=== PATIENT | female | born 1990 ===

== ENCOUNTER 2024-11-20 10:59 | Observation (INO) | payer OTHER, SELFPAY ==
[2024-11-20] VITALS (29 sets, daily range): BP systolic 90–120; BP diastolic 59–79; PULSE 54–110; RESP 11–23; TEMP 36.2–37.2; O2SAT 98–100; BMI 16.9
--- NOTE | 2024-11-20 11:30 | DI.CT_ITS ---
Exam(s) CT ABDOMEN PELVIS W EXAM: CT ABDOMEN PELVIS W CLINICAL HISTORY: RLQ abd pain TECHNIQUE: Imaging Protocol: Axial computed tomography images with coronal and sagittal reformatted images were created and reviewed. CONTRAST MATERIAL: Intravenous: Omnipaque 350 Contrast volume:75 mL Oral: No COMPARISON: No exams were available for comparison FINDINGS: ABDOMEN: Lung Bases: No acute abnormality. Liver: Normal density. There is a 1.2 cm hyperdense focus in the subcapsular region of the right lobe of the liver. This may represent a hemangioma. No suspicious hepatic masses are seen. Nonemergent MRI of the liver is recommended. Portal, Superior Mesenteric, and Splenic Veins: Unremarkable. Gallbladder and Biliary Tract: No radiodense calculus or dilation. Pancreas: Normal density, no abnormal calcifications or inflammatory process. Spleen: Normal. Adrenals: No masses seen. Kidneys: Normal size, contour and axis. There is a 2 mm nonobstructing stone in the midpole of the ri ght kidney. No masses seen. Abdominal Aorta: Abdominal portion non-dilated. Bowel: The appendix measures 1.1 cm in diameter. There is an appendicoliths seen in the tip of the a ppendix (series 10, image 120). The tip of the appendix is directed medially and lies anterior to th e sacrum. There is thickening of the wall of the cecum. The remainder of the bowel is unremarkable. There is no evidence of obstruction. Peritoneal Cavity: There is a small amount of free fluid in the pelvis. No focal fluid collection is seen to suggest an abscess. No free air. Lymph Nodes: Within normal limits. Bones: Within normal limits for the patient's age. Soft Tissues: Unremarkable. PELVIS: Bladder: Symmetric distention, no gross wall thickening. Reproductive Organs: Unremarkable as visualized. Lymph Nodes: Within normal limits. Bones: Within normal limits for the patient's age. IMPRESSION: 1. Prominent thickening of the wall of the base of the cecum. While an inflammatory or infectious pr ocess should be considered, the cecal mass cannot be excluded. Surgical consult is recommended. 2. Distended appendix with a thickened wall in appendicoliths consistent with an appendicitis. No ab scess or free air. 3. Small amount of free fluid in the pelvis. 4. Findings were discussed with the Mayr Vu at 1:10 p.m. on 11/20/2024. RADIATION DOSE DELIVERED: 220.43mGy.cm Total DLP DATA REPOSITORY: All CT scans at this facility are submitted to the National Radiology Data Registry (NRDR) Dose Index Registry (DIR) with the [employer] (A[employer]). RADIATION OPTIMIZATION: All CT scans at this facility use at least one of these dose optimization te chniques: automated exposure control; mA and/or kV adjustment per patient size (includes targeted exa ms where dose is matched to clinical indication); or iterative reconstruction.
--- NOTE | 2024-11-20 11:38 | ED.GENADUL_ITS ---
Discharge Plan Disposition Patient Disposition: Admit to [facility] Condition: Stable Discharge Details Clinical Impression: Acute appendicitis Primary Care Provider: Unknown,Unknown ED Provider: Mary Vu Home Meds and New Rx's Prescriptions: No Action sertraline [Zoloft] 100 mg tablet 100 mg PO DAILY aripiprazole [Abilify] 2 mg tablet 2 mg PO DAILY diazepam 5 mg tablet 5 mg PO TID PRN promethazine 12.5 mg tablet 12.5 mg PO TID PRN Rx Instructions: 3 doses during day; last dose no later than 4 hr before bedtime HPI General Mode of arrival: ambulatory . Date/Time Provider Initiated Documentation: 11/20/24 11:07 . Limitations to Documentation: no limitations . Information obtained by: patient, RN notes reviewed and old records reviewed . HPI Narrative: 34-year-old female presents to the ER with a chief complaint of right lower quadrant abdominal pain for the last week. She reports it burning in nature and that it radiates up into her left upper quadrant. No history of abdominal surgeries. She does report some hesitancy with urination. Reports that her menstrual period should start in the next 4 days. She does endorse nausea no vomiting no diarrhea. She has been taking promethazine at home. Does have a history of gastroparesis and ovarian cyst. She also endorses chills and low- grade fever. No other associated symptoms or concerns. Patient is alert and oriented. No abdominal distention no masses palpated. Related Data Home Medications ?Medication ?Instructions ?Recorded ?Confirmed aripiprazole 2 mg tablet (Abilify) 2 mg PO DAILY 11/20/24 11/20/24 diazepam 5 mg tablet 5 mg PO TID PRN 11/20/24 11/20/24 promethazine 12.5 mg tablet 12.5 mg PO TID PRN 11/20/24 11/20/24 sertraline 100 mg tablet (Zoloft) 100 mg PO DAILY 11/20/24 11/20/24 Allergies Allergy/AdvReac Type Severity Reaction Status Date / Time No Known Allergies Allergy Unverified 11/20/24 11:07 General Stated Complaint: Abd Prob CHUY: 3 Review of Systems All systems reviewed & are unremarkable except as noted in HPI and below Gastrointestinal Gastrointestinal: Reports abdominal pain and Reports nausea Exam Narrative Exam Narrative: Constitutional: Alert and oriented x3. Appears stated age. Thin body habitus. Head: Normocephalic, no trauma. Eyes: Pupils PERRL, Red reflex noted, EOM's intact. Eyelids symmetrical without lesions, discharge, or swelling. ENT: Bilateral TM's WNL, External ear normal to inspection, no mastoid TTP, swelling, or erythema, Nasal turbinates WNL, no nasal discharge. Normal dentition, Posterior pharynx WNL, no exudate. Chest: RRR, Normal S1, S2, distal pulses intact. Resp: Lungs clear to auscultation bilaterally, no wheezes, rales, or rhonchi. Abdomen: Soft, non-distended, hypoactive bowel sounds all 4 quads. Musculoskeletal: Normal gait, Moves all 4 extremities without difficulty. Skin: No suspicious rashes or lesions. Capillary refill less than 2 sec. Neurologic: Cranial nerves II-XII intact. Alert and oriented x 3. Motor: No deficits noted. Sensory: Intact bilaterally all 4 extremities. Hematologic/Lymphatic: No ecchymosis, no lymphadenopathy. Course Vital Signs Vital signs: Vital Signs Temperature 36.6 C 11/20/24 11:01 Pulse 99 H 11/20/24 11:01 Respiratory Rate 20 11/20/24 11:01 Blood Pressure 109/75 11/20/24 11:01 Pulse Oximetry 98 11/20/24 11:01 Temperature 36.6 C 11/20/24 11:04 Pulse 99 H 11/20/24 11:04 Respiratory Rate 20 11/20/24 11:04 Blood Pressure 109/75 11/20/24 11:04 Blood Pressure Position Sitting 11/20/24 11:04 Pulse Oximetry 98 11/20/24 11:04 Oxygen Delivery Method Room Air 11/20/24 11:04 Oxygen Flow Rate 0 11/20/24 11:04 Pain Level 7 11/20/24 11:35 Medical Decision Making 34-year-old female presents to the ER with a chief complaint of right lower quadrant abdominal pain for the last week. She reports it burning in nature and that it radiates up into her left upper quadrant. No history of abdominal surgeries. She does report some hesitancy with urination. Reports that her menstrual period should start in the next 4 days. She does endorse nausea no vomiting no diarrhea. She has been taking promethazine at home. Does have a history of gastroparesis and ovarian cyst. She also endorses chills and low- grade fever. No other associated symptoms or concerns. Patient is alert and oriented. No abdominal distention no masses palpated. Abdominal pain workup ordered including CBC CMP lipase urinalysis and urine test. CT abdomen pelvis with contrast. Differential diagnose includes limited to UTI, ovarian cyst, appendicitis, gastroenteritis, GERD Labs showed leukocytosis white blood cell count 13.92, neutrophils 11.28 lipase within normal limits urinalysis shows trace blood 3-5 RBCs no evidence of UTI. 1312: Spoke with radiologist Dr. Díaz regarding CT results he reports that her appendix is enlarged there is also some adjacent inflammation of the cecum. Surgery paged. Discussed CT results with patient who verbalized understanding. She last ate last night. She is requesting some Valium, will give her 0.5 of lorazepam IV. Instructed on NPO status. 1327: Discussed case with Dr. Martinez who is chief radiation therapist for surgery, he verbalized understanding and will contact OR crew. Patient transported to the OR by ED staff remained hemodynamically stable throughout the remainder of her stay. This text was generated using [employer] system, please disregard any oddities of phrase or misspellings. Imaging Data Radiologic Study: Imaging: CT Scan Radiologist's impression: IMPRESSION: 1. Prominent thickening of the wall of the base of the cecum. While an inflammatory or infectious process should be considered, the cecal mass cannot be excluded. Surgical consult is recommended. 2. Distended appendix with a thickened wall in appendicoliths consistent with an appendicitis. No abscess or free air. 3. Small amount of free fluid in the pelvis. 4. Findings were discussed with the Mary Vu at 1:10 p.m. on 11/20/2024. Lab Data Lab results reviewed: Yes I reviewed the patient's lab results. Labs: Laboratory Tests Range/Units 11/20/24 11/20/24 11:40 11:45 WBC (4.4-10.8) 10^3/uL 13.92 H RBC (3.93-5.22) 10^6/uL 4.93 Hgb (11.2-15.7) g/dL 14.7 Hct (36.0-46.0) % 44.4 MCV (80-95) fL 90 MCH (27.0-33.0) pg 29.8 MCHC (32.0-36.0) % 33.1 RDW (11.7-14.6) % 12.7 Plt Count (130-400) 10^3/uL 268 MPV (8.0-11.0) fL 9.6 Immature Gran % % 0.4 Neutrophils % % 81.0 Lymphocytes % % 11.9 Monocytes % % 6.1 Eosinophils % % 0.2 Basophils % % 0.4 Nucleated RBC % (0.0-0.3) % 0.0 Absolute Neutrophils (1.2-6.7) 10^3/uL 11.28 H Absolute Lymphocytes (1.2-3.4) 10^3/uL 1.66 Absolute Monocytes (0.1-0.8) 10^3/uL 0.85 H Absolute Eosinophils (0.0-0.7) 10^3/uL 0.03 Absolute Basophils (0.0-0.2) 10^3/uL 0.06 Sodium (136-145) mmol/L 141 Potassium (3.5-5.1) mmol/L 4.0 Chloride (98-107) mmol/L 102 Carbon Dioxide (21.0-32.0) mmol/L 29.2 Anion Gap (3-11) mmol/L 9.8 BUN (7-18) mg/dL 6 L Creatinine (0.55-1.02) mg/dL 0.7 Est GFR (CKD-EPI 2020) (mL/min/1.73m2) 116.31 Glucose (74-106) mg/dL 94 Calcium (8.5-10.1) mg/dL 9.4 Magnesium (1.8-2.4) mg/dL 1.9 Total Bilirubin (0.2-1.0) mg/dL 0.5 AST (15-37) U/L 12 L ALT (14-59) U/L 16 Alkaline Phosphatase (46-116) U/L 88 Total Protein (6.4-8.2) g/dL 7.8 Albumin (3.4-5.0) g/dL 4.2 Lipase (<78) U/L 22 Urine Color (Yellow) Yellow Urine Clarity (Clear) Clear Urine pH (5-8) 8.0 Ur Specific Hixson (1.005-1.025) 1.015 Urine Protein (Neg-Trace) mg/dL Negative Urine Ketones (Negative) mg/dL Negative Urine Blood (Negative) Trace-intact H Urine Nitrite (Negative) Negative Urine Bilirubin (Negative) Negative Urine Urobilinogen (Up to 0.2) mg/dL 0.2 Ur Leukocyte Esterase (Negative) Negative Urine RBC (0-2) HPF 3-5 H Urine WBC (0-5) HPF 0-2 Ur Epithelial Cells (Negative) HPF Moderate Urine Crystals (Negative) HPF Negative Urine Bacteria (Negative) HPF Few Urine Casts (Negative) LPF Negative Urine Mucus (Negative) Moderate Urine Other (Negative) Negative Ur Culture Indicated? No Urine Glucose (Negative) mg/dL Negative Quality:SDOH Health Related Social Needs: No Data to Display PFSH All Active Problems (Updated 11/20/24 @ 13:32 by Mary Vu NP) Acute appendicitis (Acute) Social History Smoking/Tobacco Use Status: Never Smoking risk assessment performed?: Yes Alcohol Intake: never Drug use: Socially Substance use type: marijuana
[2024-11-20 11:52] LABS: Bilirubin Negative (Negative); Blood Trace-intact (Negative); Clarity Clear (Clear); Glucose Negative (Negative); Ketones Negative (Negative); Leukocyte Esterase Negative (Negative); Nitrite Negative (Negative); Specific Gravity 1.015 (1.005-1.025); Urobilinogen 0.2 mg/dL (Up to 0.2)
[2024-11-20 11:54] LABS: Abs Immature Grans 0.05 10^3/uL (0.0-0.06); Absolute Eosinophil Count 0.03 10^3/uL (0.0-0.7); Absolute Lymphocyte Count 1.66 10^3/uL (1.2-3.4); Absolute Monocyte Count 0.85 10^3/uL (0.1-0.8); Absolute Neutrophil Count 11.28 10^3/uL (1.2-6.7); Basophils % 0.4 %; Eosinophils % 0.2 %; HCT 44.4 % (36.0-46.0); HGB 14.7 g/dL (11.2-15.7); Immature Grans % 0.4 %; Lymphocytes % 11.9 %; MCH 29.8 pg (27.0-33.0); MCHC 33.1 % (32.0-36.0); MCV 90 fL (80-95); MPV 9.6 fL (8.0-11.0); Monocytes % 6.1 %; Platelet Count 268 10^3/uL (130-400); RBC 4.93 10^6/uL (3.93-5.22); RDW 12.7 % (11.7-14.6); RDW-SD 42.4 fL; WBC 13.92 10^3/uL (4.4-10.8)
[2024-11-20 11:56] LABS: Absolute Basophil Count 0.06 10^3/uL (0.0-0.2)
[2024-11-20] MEDS: Omnipaque 350 MG/ML 100 ML BTL 75 ML IJ (12:04)
[2024-11-20] MEDS: Normal Saline - Diluent 50 ML VIAL IJ (12:05)
[2024-11-20 12:06] LABS: Bacteria Few HPF (Negative); C & S Indicated? No; Casts Negative LPF (Negative); Crystals Negative HPF (Negative); Epithelial Cells Moderate HPF (Negative); Mucus Moderate (Negative); Other Cells Negative (Negative); WBC 0-2 HPF (0-5)
[2024-11-20 12:15] LABS: ALT 16 U/L (14-59); AST 12 U/L (15-37); Albumin 4.2 g/dL (3.4-5.0); Alkaline Phosphatase 88 U/L (46-116); Anion Gap 9.8 mmol/L (3-11); BUN 6 mg/dL (7-18); Bilirubin, Total 0.5 mg/dL (0.2-1.0); CO2 29.2 mmol/L (21.0-32.0); CREATININE 0.7 mg/dL (0.55-1.02); Calcium 9.4 mg/dL (8.5-10.1); Chloride 102 mmol/L (98-107); Estimated GFR 116.31 (mL/min/1.73m2); Glucose 94 mg/dL (74-106); Lipase 22 U/L (<78); Magnesium 1.9 mg/dL (1.8-2.4); Sodium 141 mmol/L (136-145); Total Protein 7.8 g/dL (6.4-8.2)
[2024-11-20] MEDS: ACETAMINOPHEN 1,000 MG/100 ML BAG 400 MG IVPB (12:19)
[2024-11-20] MEDS: LORazepam 2 MG/ML VIAL 0.5 MG IVP (13:23)
[2024-11-20] MEDS: Normal Saline 1,000 ML 150 ML IV (13:38)
--- NOTE | 2024-11-20 14:00 | ANES.PREOP_ITS ---
General Info Date of Service Date Performed: 11/20/24 Height: 5 ft 6 in Weight: 47.627 kg Body Mass Index (BMI): 16.9 Meds Allergies and Home Medications Allergies Allergy/AdvReac Type Severity Reaction Status Date / Time No Known Allergies Allergy Unverified 11/20/24 11:07 Home Medication ?Medication ?Instructions ?Recorded aripiprazole 2 mg tablet (Abilify) 2 mg PO DAILY 11/20/24 diazepam 5 mg tablet 5 mg PO TID PRN 11/20/24 promethazine 12.5 mg tablet 12.5 mg PO TID PRN 11/20/24 sertraline 100 mg tablet (Zoloft) 100 mg PO DAILY 11/20/24 Current Visit Medications: Current Medications Generic Name Dose Route Start Last Admin Trade Name Freq PRN Reason Stop Dose Admin Sodium Chloride 1,000 mls @ 150 mls/hr 11/20/24 13:16 11/20/24 13:38 Saline 1000ml Bag IV 11/20/24 19:55 150 mls/hr INFUSION STA Administration IV Miscellaneous Supplies 1 each 11/20/24 11:45 Iv Access-Emergency Dept IV DIRECTED NADER Iohexol 75 ml 11/20/24 12:15 11/20/24 12:04 Omnipaque 350 Mg/Ml 100 Ml Btl IJ 12/20/24 23:59 75 ml DIRECTED NADER Administration Sodium Chloride 0 ml 11/20/24 11:37 Normal Saline Flush 10 Ml Syr IVP PRN PRN Sodium Chloride 0 ml 11/20/24 20:00 Normal Saline Flush 10 Ml Syr IVP BID NADER Sodium Chloride 0 ml 11/20/24 11:37 Normal Saline 10 Ml Vial IJ DIRECTED PRN Sodium Chloride 50 ml 11/20/24 12:15 11/20/24 12:05 Normal Saline - Diluent 50 Ml Vial IJ 50 ml .FOR DI USE NADER Administration PFSH Active Problems Active Problems: Problem Status Onset Code Acute appendicitis Acute K35.80 Tobacco Smoking/Tobacco Use Status: Never Alcohol Alcohol Intake: never Substance Use Substance use: Socially Substance use type: marijuana Vital Signs and Lab Results Vital Signs Most Recent Vital Signs in EMR: Most Recent Vital Signs Temp Pulse Resp BP Pulse Ox 36.6 C 99 H 20 109/75 98 11/20/24 11:04 11/20/24 11:04 11/20/24 11:04 11/20/24 11:04 11/20/24 11:04 Point of Care Results Point of Care Results: POC- Test(urine) Negative 11/20/24 11:52 Lab Results 11/20/24 11:45 11/20/24 11:45 Blood Type / Crossmatch: 2 No Data to Display Complete Blood Count: 2 White Blood Count 13.92 10^3/uL (4.4-10.8) H 11/20/24 11:45 Red Blood Count 4.93 10^6/uL (3.93-5.22) 11/20/24 11:45 Hemoglobin 14.7 g/dL (11.2-15.7) 11/20/24 11:45 Hematocrit 44.4 % (36.0-46.0) 11/20/24 11:45 Platelet Count 268 10^3/uL (130-400) 11/20/24 11:45 Complete Metabolic Panel: 2 Sodium 141 mmol/L (136-145) 11/20/24 11:45 Potassium 4.0 mmol/L (3.5-5.1) 11/20/24 11:45 Chloride 102 mmol/L (98-107) 11/20/24 11:45 Carbon Dioxide 29.2 mmol/L (21.0-32.0) 11/20/24 11:45 BUN 6 mg/dL (7-18) L 11/20/24 11:45 Creatinine 0.7 mg/dL (0.55-1.02) 11/20/24 11:45 Est GFR (CKD-EPI 2020) 116.31 (mL/min/1.73m2) 11/20/24 11:45 Magnesium 1.9 mg/dL (1.8-2.4) 11/20/24 11:45 Calcium 9.4 mg/dL (8.5-10.1) 11/20/24 11:45 Albumin 4.2 g/dL (3.4-5.0) 11/20/24 11:45 Glucose 94 mg/dL (74-106) 11/20/24 11:45 Liver Function Panel: 2 Alanine Aminotransferase (ALT/SGPT) 16 U/L (14-59) 11/20/24 11: 45 Aspartate Amino Transf (AST/SGOT) 12 U/L (15-37) L 11/20/24 11: 45 Coagulation Panel: 2 No Data to Display Cardiac Panel: 2 No Data to Display Arterial Blood Gas: 2 No Data to Display Venous Blood Gas: 2 No Data to Display Pancreas Panel: 2 Lipase 22 U/L (<78) 11/20/24 11:45 Thyroid Panel: 2 No Data to Display Infectious Disease: 2 No Data to Display Blood Cultures: 2 No Data to Display Toxicology Panel: 2 No Data to Display Panel: 2 No Data to Display Anesthesia Assessment and Plan Anesthesia History Personal History: No History of General Anesthesia Family History: No Family History of Anesthesia Complications Exercise Tolerance Exercise Tolerance: Metabolic Equivalents>4 Pertinent Negatives Pertinent Negatives: No Symptoms of GERD, No Major Cardiovascular Symptoms or Complaints and No Major Pulmonary Symptoms or Complaints Cardiac & Pulmonary Exam Cardiac Exam: Normal S1/S2 Heart Sounds Pulmonary Exam: Clear Bilateral Breath Sounds Implantable Cardiac Device Does patient have a Pacemaker or an ICD?: No Airway Exam Known Difficult Airway: No Mallampati Class: 3 Mouth Opening: Normal (> 3cm) Thyromental Distance: Greater than 3 cm Neck Range of Motion: Full ROM Neck Circumference: Normal Teeth Condition: Normal Dentition (Right upper tooth cracked, planning extraction in the future) ASA Classification ASA Score: ASA 2 Emergency Case?: Yes NPO Status NPO Status: NPO Clears >2 hours, Solids >8 hours Status Status: Negative HCG Anesthesia Plan Resuscitation Status: Full Code Anesthesia Technique: General Anesthesia Airway Planned: Endotracheal Tube Monitors Used: Standard Monitors and SedLine
--- NOTE | 2024-11-20 14:34 | W.SURGCON ---
Date of service: 11/20/24 Time of Service: 14:34 Assessment and Plan Assessment and plan (1) Acute appendicitis: Status: Acute Assessment and plan: Patient with acute appendicitis, plan for laparoscopic appendectomy, discussed with patient risks and expected outcomes of the procedure. She does live over an hour away from this facility, we will plan to keep her here overnight, if she is doing well tomorrow, plan for discharge home. (2) Gastroparesis: Status: Acute Assessment and plan: She does have some underlying gastroparesis, this can make postoperative course more lengthy, especially if she is unable to tolerated diet. Did discuss this with her today. (3) Anxiety: Status: Chronic Assessment and plan: She does have anxiety and depression, plan to restart these medications when she is able to take liquids enterally. (4) Depression: Status: Chronic Assessment and plan: As above History of Present Illness History of Present Illness Chief Complaint: Abdominal pain Narrative: Patient is a pleasant 34-year-old female, she has a history of gastroparesis, interstitial cystitis, depression, and anxiety, she presents to the hospital having about a week of lower abdominal pain associated with nausea. She has had no change in bowel function, some mild dysuria. Has not had pain of this character in the past. This prompted her to present to the ER today. Review of Systems Narrative: General, patient is of thin body habitus secondary to gastroparesis. CV negative. Respiratory negative. GI, as per HPI above, patient with history of gastroparesis, she has had this since her early 20s, is associated with nausea and vomiting for which she is on antiemetics. negative. Musculoskeletal negative. Endocrine negative. Neuro negative. Psych, patient with depression and anxiety as listed above. PFSH All Active Problems (Updated 11/20/24 @ 14:40 by Kev Martinez MD) Depression (Chronic) Anxiety (Chronic) Gastroparesis (Acute) Acute appendicitis (Acute) Social History Smoking/Tobacco Use Status: Never Smoking risk assessment performed?: Yes Alcohol Intake: never Drug use: Socially Substance use type: marijuana Exam Narrative Exam Narrative: Patient is a pleasant adult female, she is awake and alert, in minimal discomfort today. 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 She is of thin body habitus. Her cardiac exam is regular rate and rhythm without gross murmur. Her pulmonary exam is clear to auscultation bilaterally. Her abdomen was without prior surgical scar, it is scaphoid, soft, tender in the right lower quadrant, at McBurney's point, nondistended. Results Last Vital Signs Temp 36.6 C 11/20/24 11:04 Pulse 54 L 11/20/24 14:05 Resp 16 11/20/24 14:05 BP 107/71 11/20/24 14:05 Pulse Ox 98 11/20/24 14:05 Labs 11/20/24 11:45 11/20/24 11:45 Labs: Laboratory Results - last 24 hr 11/20/24 11/20/24 11:40 11:45 WBC 13.92 H RBC 4.93 Hgb 14.7 Hct 44.4 MCV 90 MCH 29.8 MCHC 33.1 RDW 12.7 Plt Count 268 MPV 9.6 Immature Gran % 0.4 Neutrophils % 81.0 Lymphocytes % 11.9 Monocytes % 6.1 Eosinophils % 0.2 Basophils % 0.4 Nucleated RBC % 0.0 Absolute Neutrophils 11.28 H Absolute Lymphocytes 1.66 Absolute Monocytes 0.85 H Absolute Eosinophils 0.03 Absolute Basophils 0.06 Sodium 141 Potassium 4.0 Chloride 102 Carbon Dioxide 29.2 Anion Gap 9.8 BUN 6 L Creatinine 0.7 Est GFR (CKD-EPI 2020) 116.31 Glucose 94 Calcium 9.4 Magnesium 1.9 Total Bilirubin 0.5 AST 12 L ALT 16 Alkaline Phosphatase 88 Total Protein 7.8 Albumin 4.2 Lipase 22 Urine Color Yellow Urine Clarity Clear Urine pH 8.0 Ur Specific Rebecca 1.015 Urine Protein Negative Urine Ketones Negative Urine Blood Trace-intact H Urine Nitrite Negative Urine Bilirubin Negative Urine Urobilinogen 0.2 Ur Leukocyte Esterase Negative Urine RBC 3-5 H Urine WBC 0-2 Ur Epithelial Cells Moderate Urine Crystals Negative Urine Bacteria Few Urine Casts Negative Urine Mucus Moderate Urine Other Negative Ur Culture Indicated? No Urine Glucose Negative Imaging Abdomen CT scan report/results: report reviewed, image reviewed and other (Reviewed patient's CT scan, this showing acute, nonperforated appendicitis per radiologist read. Some thickening of the cecum is noted on the read as well. I was able to view the images myself, there are some fluid collections that can be seen just adjacent to the bladder.)
[2024-11-20] MEDS: metroNIDAZOLE 500 MG/100 ML BAG 100 MG IVPB (15:33)
[2024-11-20] MEDS: Lactated Ringers 1,000 ML 30 ML IV (15:33)
--- NOTE | 2024-11-20 15:50 | APP_PTH ---
PATIENT: Karime Sánchez LOC: [id number]#:[id number] AGE/SX: 34/F ROOM: 226 RE11/20/[address]: Kev Martinez : 1990 BED: A DIS: 11/21/2024 SPEC #: [id number] RECD: 11/20/24 18:30 STATUS: SOUSalud REQ #: [id number] NATALIA: 11/20/24 15:[address]: Kev Martinez DEPT: Surgical Specimen RECD BY: Tessa Butler ENTERED: 11/20/24 18:31 SP TYPE: Appendix OTHR DR: Unknown,Unknown Tissues: 1 - APPENDIX NOT INCIDENTAL Procedures: GROSS AND MICRO LEVEL 3 Comments: [id number]
--- NOTE | 2024-11-20 16:27 | W.PM.OP ---
Operative Note Operative Note PRE-OP DIAGNOSIS: Acute appendicitis POST-OP DIAGNOSIS: same Endometriosis PROCEDURE: Laparoscopic appendectomy SURGEON: Kev Martinez PHOTOGRAPHIC RESTORER: Cindi Roe Refer to Anesthesia Record ESTIMATED BLOOD LOSS: 10 PATHOLOGY: other (Appendix) Patient was transported to: PACU Patient's condition: stable Implants: None Indications: Acute appendicitis Findings: Laparoscopic appendectomy performed uneventfully. Endometriosis was incidentally noted in the uterovesical space. Procedure Description: Patient was taken the operating room. She underwent general anesthesia the abdomen was prepped and draped. Timeout was completed. A Veress needle entry was performed in the left mid abdomen, lateral to the rectus sheath, and at the level of the umbilicus, a 5 mm trocar was inserted after the abdomen was insufflated to 15 cc of water. A 10 mm port was placed in the periumbilical position, a 5 mm port was placed in the suprapubic region. Patient's bed was air planed to the left side, she was put in a Trendelenburg position. The abdomen was surveyed, the viscera was nicely decompressed, patient had a redundant colon, with cecum that extended into the pelvis. She had a lengthy mesentery. The appendix was in its normal anatomic position at the base of the cecum. The appendix was inflamed, and dilated at its distal tip. It was not perforated nor gangrenous. The appendix was elevated, exposing the mesoappendix. The appendiceal artery was identified, circumferentially dissected, and then doubly clipped proximally with endoclips. A third clip was placed in the distal aspect, the mesoappendix was then cauterized at the level of the appendix, down to the appendiceal base. The cecum was thickened at the appendiceal base. There was an additional branching vessel of the appendiceal artery which was cauterized with electrocautery. The appendiceal base was occluded with 2 Vicryl Endoloops, a third Endoloop was placed about a centimeter distal and the appendix was transected. The pelvis was inspected, there was some bloody serous fluid in the rectovaginal pouch, this was suctioned. The uterus and adnexa appeared unremarkable. In the uterovesical space, there were small brown some peritoneal implants consistent with endometriosis. Site of dissection was inspected, it was hemostatic. The clips and ties were appropriately placed, occluding the correct structures. The appendix was placed in an endoscopic retrieval pouch, it was removed from the abdomen, the 10 mm port site near the umbilicus was closed with interrupted #1 Vicryl suture placed using suture passer. Gas was allowed to desufflate from the abdomen, all incision sites were closed with 3-0 Monocryl. Sterile dressings were applied. Sponge and needle counts were correct at the termination of the procedure. Patient is tolerated procedure well, she was transitioned to the recovery unit, she remains in stable condition. Date of Procedure: 11/20/24
[2024-11-20] MEDS: Bupivacaine 0.25% Pres-Free 30 ML VIAL (16:32)
[2024-11-20] MEDS: HYDROmorphone 2 MG/ML SYR IVP ×2 (16:39→16:53)
[2024-11-20] MEDS: Normal Saline 10 ML VIAL IJ (16:41)
--- NOTE | 2024-11-20 17:17 | W.ANESPOSTOP ---
Postoperative Evaluation Date, Time and Location Date Performed: 11/20/24 Time Performed: 17:17 Patient Location: PACU Vital Signs Most Recent Imported Vital Signs: Most Recent Vital Signs Temp Pulse Resp BP Pulse Ox 36.8 C 93 H 17 105/75 100 11/20/24 17:11 11/20/24 17:11 11/20/24 17:11 11/20/24 17:11 11/20/24 17:11 Pain Score Most Recent Pain Score: Most Recent Pain Score Pain Level 8 11/20/24 17:10 Assessment Mental Status: Awake (Alert & Oriented to Patient Baseline) Airway and Respiratory Function: Patent airway with normal (patient baseline) respiratory exam Cardiovascular Function: Hemodynamically Stable Hydration Status: Adequately Hydrated Nausea & Vomiting: Active Nausea or Vomiting Present Nausea and Vomiting Management: Nausea present without vomiting, patient wishes to be discharged (wishes to go upstairs to med/surg) Pain: Pain is Moderate or Severe Postoperative Pain Management: Ongoing pain, patient will be managed as an inpatient Peripheral Nerve Block: Patient did not receive a nerve block
--- NOTE | 2024-11-20 17:54 | W.PC.ACHO ---
Registration Status: Primary Language: Preferred Language: ED Information & Data Chief Complaint Abd Prob 11/20/24 11:41 Triage Note Hx of gastroparesis. Tender 11/20/24 11:01 pain in lower left abd quad + bilateral upper abd pain. Pain comes in waves and is helped by laying on a heating pad. PT has known ovarian cysts. Most Recent Vital Signs Temperature 36.8 C 11/20/24 17:11 Pulse 93 H 11/20/24 17:11 Pulse 94 H 11/20/24 17:11 Respiratory Rate 17 11/20/24 17:11 Blood Pressure 105/75 11/20/24 17:11 Blood Pressure Mean 83 11/20/24 17:11 Blood Pressure Position Sitting 11/20/24 11:04 Pulse Oximetry 100 11/20/24 17:11 Respiratory End-tidal CO2 29 11/20/24 17:10 Oxygen Delivery Method Room Air 11/20/24 17:10 Oxygen Flow Rate 10 11/20/24 16:25 Pain Level 8 11/20/24 17:10 Allergies No Known Allergies Allergy (Unverified 11/20/24 11:07) Active Medications Generic Name Dose Route Start Last Admin Trade Name Freq PRN Reason Stop Dose Admin Sodium Chloride 1,000 mls @ 150 mls/hr 11/20/24 13:16 11/20/24 15:35 Saline 1000ml Bag IV 11/20/24 19:55 Infused INFUSION STA Infusion Sodium Chloride 0 ml 11/20/24 15:00 11/20/24 16:41 Normal Saline 10 Ml Vial IJ 10 ml DIRECTED PRN Administration IV IV Catheter Type [Right Peripheral IV Antecubital] IV Catheter Gauge [Right 18 Antecubital] Diet Orders Category Date Time Status Post Op Diet [DIET] Nutrition 11/21/24 Breakfast Ordered npo [Nothing Per Oral] [DIET] Nutrition 11/20/24 Lunch Active Diagnostics 11/20/24 11/20/24 Range/Units 11:45 11:40 WBC 13.92 H (4.4-10.8) 10^3/uL RBC 4.93 (3.93-5.22) 10^6/uL Hgb 14.7 (11.2-15.7) g/dL Hct 44.4 (36.0-46.0) % MCV 90 (80-95) fL MCH 29.8 (27.0-33.0) pg MCHC 33.1 (32.0-36.0) % RDW 12.7 (11.7-14.6) % Plt Count 268 (130-400) 10^3/uL MPV 9.6 (8.0-11.0) fL Immature Gran % 0.4 % Neutrophils % 81.0 % Lymphocytes % 11.9 % Monocytes % 6.1 % Eosinophils % 0.2 % Basophils % 0.4 % Nucleated RBC % 0.0 (0.0-0.3) % Absolute Neutrophils 11.28 H (1.2-6.7) 10^3/uL Absolute Lymphocytes 1.66 (1.2-3.4) 10^3/uL Absolute Monocytes 0.85 H (0.1-0.8) 10^3/uL Absolute Eosinophils 0.03 (0.0-0.7) 10^3/uL Absolute Basophils 0.06 (0.0-0.2) 10^3/uL Sodium 141 (136-145) mmol/L Potassium 4.0 (3.5-5.1) mmol/L Chloride 102 (98-107) mmol/L Carbon Dioxide 29.2 (21.0-32.0) mmol/L Anion Gap 9.8 (3-11) mmol/L BUN 6 L (7-18) mg/dL Creatinine 0.7 (0.55-1.02) mg/dL Est GFR (CKD-EPI 2020) 116.31 (mL/min/1.73m2) Glucose 94 (74-106) mg/dL Calcium 9.4 (8.5-10.1) mg/dL Magnesium 1.9 (1.8-2.4) mg/dL Total Bilirubin 0.5 (0.2-1.0) mg/dL AST 12 L (15-37) U/L ALT 16 (14-59) U/L Alkaline Phosphatase 88 (46-116) U/L Total Protein 7.8 (6.4-8.2) g/dL Albumin 4.2 (3.4-5.0) g/dL Lipase 22 (<78) U/L Urine Color Yellow (Yellow) Urine Clarity Clear (Clear) Urine pH 8.0 (5-8) Ur Specific [place] 1.015 (1.005-1.025) Urine Protein Negative (Neg-Trace) mg/dL Urine Ketones Negative (Negative) mg/dL Urine Blood Trace-intact H (Negative) Urine Nitrite Negative (Negative) Urine Bilirubin Negative (Negative) Urine Urobilinogen 0.2 (Up to 0.2) mg/dL Ur Leukocyte Esterase Negative (Negative) Urine RBC 3-5 H (0-2) HPF Urine WBC 0-2 (0-5) HPF Ur Epithelial Cells Moderate (Negative) HPF Urine Crystals Negative (Negative) HPF Urine Bacteria Few (Negative) HPF Urine Casts Negative (Negative) LPF Urine Mucus Moderate (Negative) Urine Other Negative (Negative) Ur Culture Indicated? No Urine Glucose Negative (Negative) mg/dL [id number] Documentation POC Urine Test Start: 11/20/24 11:37 Freq: .Urine Test Status: Complete Protocol: Activity Type Activity Date Activity User E-sign Co-sign Detail Recorded Client Recorded Date Recorded By Document 11/20/24 11:52 N.COTC [id number] 11/20/24 11:52 N.COTC Intake and Output - 24 Hour Total 11/20/24 10:59 thru 11/20/24 17:10 Intake Total 1900 Output Total 110 Balance 1790 Weight 47.627 kg Intake: IV 1900 Output: Urine 100 Estimated Blood Loss 10 Other: Urine Color Pale Urine Appearance Clear Emesis Description None Urinary Catheter Urinary Catheter Date of 11/20/24 Insertion [Urethral (Matthews)] Time of insertion [Urethral ( 14:50 Matthews)] Falls Risk Assessment History of Falls No History 11/20/24 11:04 Contributing Factors No Factors 11/20/24 11:04 Ambulatory Aids Independent 11/20/24 11:04 Tubes/Lines None 11/20/24 11:04 Gait Evaluation No gait disturbance 11/20/24 11:04 Cognition No cognitive impairment 11/20/24 11:04 Fall Total Score 0 11/20/24 11:04 Level of Risk Standard/Low Risk 11/20/24 11:04 Problems (Last Reviewed 11/20/24 @ 14:37 by Kev Martinez MD) Depression (Chronic) Anxiety (Chronic) Gastroparesis (Acute) Acute appendicitis (Acute) v v v v v v v v v Sending and/or Receiving Nurses: Please use comment section below to note any information pertinent to the patient hand-off not included above. Information / Comments: Neuro: AxOx4 Cardiac: WDL Resp: WDL LDA: 18g LAC PRN's reviewed, Intra operative medications reviewed, allergies reviewed, possible endometriosis finding, General Anes used. See chart for Perioperative Hand off report. Report received from: JOSE Flores (OR)
[2024-11-20] MEDS: Ondansetron 4 MG/2 ML VIAL IVP (18:03)
[2024-11-20] MEDS: Normal Saline Flush 10 ML SYR IVP (18:04)
[2024-11-20] MEDS: Ibuprofen 600 MG TAB PO ×2 (18:04→23:50)
[2024-11-20] MEDS: Acetaminophen 500 MG TAB PO ×2 (18:04→21:37)
[2024-11-20] MEDS: Lactated Ringers 1,000 ML 75 ML IV (19:16)
[2024-11-20] MEDS: traMADol 50 MG TAB PO (19:45)
[2024-11-21] MEDS: Acetaminophen 500 MG TAB PO ×3 (01:44→11:50)
[2024-11-21] MEDS: traMADol 50 MG TAB PO ×2 (01:54→08:20)
[2024-11-21 03:49] VITALS: BP 104/61; PULSE 76; RESP 18; TEMP 36.6; O2SAT 99
[2024-11-21] MEDS: Ibuprofen 600 MG TAB PO (05:52)
[2024-11-21 07:30] VITALS: BP 96/68; PULSE 68; RESP 14; TEMP 36.9; O2SAT 98
[2024-11-21] MEDS: diazePAM 5 MG TAB PO (08:19)
[2024-11-21] MEDS: Sertraline 100 MG TAB PO (08:19)
[2024-11-21] MEDS: Ondansetron 4 MG/2 ML VIAL IVP (08:20)
[2024-11-21] MEDS: ARIPiprazole 2 MG TAB PO (08:21)
[2024-11-21] MEDS: Lactated Ringers 1,000 ML 75 ML IV (08:21)
[2024-11-21] MEDS: Normal Saline Flush 10 ML SYR IVP (08:21)
[2024-11-21 08:23] VITALS: RESP 16
--- NOTE | 2024-11-21 09:04 | PDOC.CMIN ---
Date of service: 11/21/24 Time of Service: 09:04 Care Management Initial Assmt Initial Assessment Reason for Hospitalization: appendicitis Functional Status/Living Situation Town of Residence: [place] Advance Directives Advance Directives: Do you have an Advance Directive: AD On File at [facility]: Date Asked AD Date Reviewed COLST On File at [facility] COLST Date Scanned Code Status Resuscitation Status Full Code Portal Pt does not currently have a portal and education provided: Yes Insurance Coverage/Financial Issues Insurance: P Care Team Visit Care Team Role Provider Type Unknown Unknown Primary Care Provider STAFF PHYSICIAN Mary Vu, JYOTSNA Emergency Provider NURSE PRACTITIONER Kev Martinez MD Admit Provider [facility] STAFF PHYSICIAN Attending Provider Discharge Potential Discharge Needs: Surgical F/U Appt Anticipated Barriers to Discharge: None Identified Patient/Family Education Needs: Review discharge instructions, discuss Ask Me Three Transportation: Private vehicle Plan: Anticipate Karime will be discharged home with no new services when medically cleared. She will follow up with her surgeon and plan of care and transport with family. CM will follow and continue to support discharge planning. Social Determinants of Health Screening Social Determinants of health last assessed in clinic: 11/20/24 Will the Patient Participate in the Screening?: Yes Do you worry about having a steady place to live?: no Problems where you live: no known problems In the past 12 months, have you had to go without electric, gas, oil or water in your home?: no Has lack of transportation kept you from medical appointments or from doing things needed for daily living?: no Has anyone in your life made you feel unsafe or unsupported?: no How hard is it for you to pay for the very basics like food, housing, medical care, and heating? Would you say it is:: Not hard at all Do you want help finding or keeping work or a job?: I do not need or want help If for any reason you need help with day-to-day activities such as bathing, preparing meals, shopping, managing finances, etc., do you get the help you need?: I don?t need any help How often do you feel lonely or isolated from those around you?: Never Do you speak a language other than [place] at home?: No Does the patient want assistance with any of the above?: No PFSH All Active Problems (Updated 11/20/24 @ 14:40 by Kev Martinez MD) Depression (Chronic) Anxiety (Chronic) Gastroparesis (Acute) Acute appendicitis (Acute) Social History Smoking/Tobacco Use Status: Never Smoking risk assessment performed?: Yes Alcohol Intake: never Drug use: Socially Substance use type: marijuana Housing: house
--- NOTE | 2024-11-21 10:33 | DSE_ITS ---
Date of service: 11/21/24 Time of Service: 10:33 DS: Diagnosis Discharge Diagnosis (1) Acute appendicitis: Status: Acute Asessment and Plan: She is feeling well today. No nausea nor vomiting, the pain that she had in the right lower quadrant has improved. She does have some periumbilical pain as expected postoperatively. Counseled her about avoidance of heavy lifting for the next 4 weeks. She should follow back here in clinic in 2 weeks for review of pathology. (2) Gastroparesis: Status: Acute Asessment and Plan: She does have a diagnosis of gastroparesis. Counseled her to avoid foods that cannot easily be mashed and disintegrated with a fork. Encouraged her to maintain 50 g of protein intake per day. (3) Anxiety: Status: Chronic Asessment and Plan: I have restarted medications for anxiety and depression. (4) Depression: Status: Chronic Discharge Plan Disposition Patient Disposition: Home Condition: Stable Discharge Details Reason For Visit: abd pain Admit Date/Time: 11/20/24 15:01 Admit Provider: Kev Martinez Attending Provider: Kev Martinez Primary Care Provider: Unknown,Unknown Hospital Course Hospital Course: Patient is a 34-year-old female, she presented to the hospital yesterday with acute appendicitis, underwent an uncomplicated laparoscopic appendectomy yesterday. She was planned for discharge home today. Home Meds and New Rx's Prescriptions: No Action sertraline [Zoloft] 100 mg tablet 100 mg PO DAILY aripiprazole [Abilify] 2 mg tablet 2 mg PO DAILY diazepam 5 mg tablet 5 mg PO TID PRN promethazine 12.5 mg tablet 12.5 mg PO TID PRN Rx Instructions: 3 doses during day; last dose no later than 4 hr before bedtime Discharge Instructions Instructions: Appendectomy, Laparoscopic Surgery (DC) Additional Instructions: Okay to shower, 24 hours after procedure. Recommend no heavy lifting, nothing greater than 15 pounds for 4 weeks from the date of procedure. Referrals: Sander Díaz MD [ [facility] STAFF PHYSICIAN] - Activity:: No heavy lifting, as abov Equipment/Supplies:: No Equipment Needed Diet:: As Tolerated Discharge Orders Discharge Orders: Discharge Order (Routine); Ordered 11/21/24 Ordered By: Kev Martinez DS: Summary Time Spent with Patient providing and/or coordinating discharge services: Less than 30 minutes Status at Discharge Functional status at discharge: independent ambulation Overall status at discharge: patient is back to baseline Mental Status: mental status grossly normal Speech and Movement: speech and movement normal Mood: congruent mood Affect: normal affect Quality:SDOH Health Related Social Needs: No Data to Display Exam Narrative Exam Narrative: Patient today with normal vital signs, she was examined with her nurse present. Her abdomen has some tenderness in the periumbilical region, soft and nondistended. She is planned for discharge home today. Psych Mental Status: mental status grossly normal Speech and Movement: speech and movement normal Mood: congruent mood Affect: normal affect DS: Data Vitals/I&O Vitals and I&O: Vital Signs Temperature 36.9 C 11/21/24 07:30 Temperature Source Temporal Artery Scan 11/21/24 07:30 Pulse 68 11/21/24 07:30 Pulse Rhythm Regular 11/20/24 17:30 Pulse 94 H 11/20/24 17:11 Respiratory Rate 16 11/21/24 08:23 Respiratory Effort Normal 11/20/24 17:30 Respiratory Depth Normal 11/20/24 17:30 Respiratory Pattern Normal 11/20/24 17:30 Blood Pressure 96/68 L 11/21/24 07:30 Blood Pressure Mean 83 11/20/24 17:11 Blood Pressure Position Sitting 11/20/24 11:04 Pulse Oximetry 98 11/21/24 07:30 Respiratory End-tidal CO2 29 11/20/24 17:10 Oxygen Delivery Method Room Air 11/21/24 09:17 Oxygen Flow Rate 0 11/21/24 09:17 Pain Level 5 11/21/24 09:20 Comment RN notified 11/21/24 07:30 Intake & Output 11/20/24 11/20/24 11/21/24 11:59 23:59 11:59 Intake Total 1919 1011.25 / 1011.25 Output Total 360 / 360 900 / 900 Balance 1560 / 1560 111.25 / 111.25 Weight 47.627 kg 47.627 kg Intake: IV 1919 1011.25 / 1011.25 Output: Urine 350 / 350 900 / 900 Estimated Blood Loss 10 / 10 Other: Urine Color Yellow Yellow Urine Appearance Clear Clear Urine Odor None Comment ambulated to bathroom Emesis Description None Data Completed and Pending Labs on day of discharge: Labs from last 24 hours 11/20/24 11/20/24 11:45 11:40 WBC 13.92 H RBC 4.93 Hgb 14.7 Hct 44.4 MCV 90 MCH 29.8 MCHC 33.1 RDW 12.7 Plt Count 268 MPV 9.6 Immature Gran % 0.4 Neutrophils % 81.0 Lymphocytes % 11.9 Monocytes % 6.1 Eosinophils % 0.2 Basophils % 0.4 Nucleated RBC % 0.0 Absolute Neutrophils 11.28 H Absolute Lymphocytes 1.66 Absolute Monocytes 0.85 H Absolute Eosinophils 0.03 Absolute Basophils 0.06 Sodium 141 Potassium 4.0 Chloride 102 Carbon Dioxide 29.2 Anion Gap 9.8 BUN 6 L Creatinine 0.7 Est GFR (CKD-EPI 2020) 116.31 Glucose 94 Calcium 9.4 Magnesium 1.9 Total Bilirubin 0.5 AST 12 L ALT 16 Alkaline Phosphatase 88 Total Protein 7.8 Albumin 4.2 Lipase 22 Urine Color Yellow Urine Clarity Clear Urine pH 8.0 Ur Specific [place] 1.015 Urine Protein Negative Urine Ketones Negative Urine Blood Trace-intact H Urine Nitrite Negative Urine Bilirubin Negative Urine Urobilinogen 0.2 Ur Leukocyte Esterase Negative Urine RBC 3-5 H Urine WBC 0-2 Ur Epithelial Cells Moderate Urine Crystals Negative Urine Bacteria Few Urine Casts Negative Urine Mucus Moderate Urine Other Negative Ur Culture Indicated? No Urine Glucose Negative PFSH All Active Problems (Updated 11/20/24 @ 14:40 by Kev Martinez MD) Depression (Chronic) Anxiety (Chronic) Gastroparesis (Acute) Acute appendicitis (Acute) Social History Smoking/Tobacco Use Status: Never Smoking risk assessment performed?: Yes Alcohol Intake: never Drug use: Socially Substance use type: marijuana Housing: house Time Spent with Patient Time Spent with Patient: <45 minutes Time was spent: preparing to see the patient(eg.review tests), referring, communicating with other health associate director career services, indepentently interpreting results and counseling the patient
--- NOTE | 2024-11-21 16:05 | CMPROGNOTE_ITS ---
Date of service: 11/21/24 Time of Service: 16:05 Care Management Progress Note Progress Note Text Progress Note Text: Karime was admitted on 11/20/24 with abdominal pain. Her workup in the ED indicated likely appendicitis and she was taken to the OR. Karime underwent a laparoscopic appendectomy with an incidental finding of endometriosis. Her recovery was uneventful and she was discharge home this morning before CM could meet with her. Discharge Potential Discharge Needs: Surgical F/U Appt Anticipated Barriers to Discharge: None Identified Patient/Family Education Needs: Review discharge instructions, discuss Ask Me Three Transportation: Private vehicle Social Determinants of Health Screening Social Determinants of health last assessed in clinic: 11/21/24 Will the Patient Participate in the Screening?: Yes Do you worry about having a steady place to live?: no Problems where you live: no known problems In the past 12 months, have you had to go without electric, gas, oil or water in your home?: no 1. Within the past 12 months, we worried whether our food would run out before we got money to buy more.: Never true 2. Within the past 12 months, the food we bought just didn't last and we didn't have money to get more.: Never true Has lack of transportation kept you from medical appointments or from doing things needed for daily living?: no Has anyone in your life made you feel unsafe or unsupported?: no How hard is it for you to pay for the very basics like food, housing, medical care, and heating? Would you say it is:: Not hard at all Do you want help finding or keeping work or a job?: I do not need or want help If for any reason you need help with day-to-day activities such as bathing, preparing meals, shopping, managing finances, etc., do you get the help you need?: I don?t need any help How often do you feel lonely or isolated from those around you?: Never Do you speak a language other than Arabic at home?: No Does the patient want assistance with any of the above?: No
== END 2024-11-21 12:10 | disposition home or self-care (01) ==
LOC: ER 14:02 → DSU 14:25 → MS 18:04
PROVIDERS: Admitting Provider Surgery; Emergency Provider Registered Nurse Emergency; Visit Provider Surgery
PROC: 0DTJ4ZZ Resection of Appendix, Percutaneous Endoscopic Approach (ICD-10-PCS; CPT 44970; principal; 2024-11-20 15:45)
DX: K35.30 Acute appendicitis with localized peritonitis, without perforation or gangrene; K31.84 Gastroparesis; F32.9 Major depressive disorder, single episode, unspecified; F41.9 Anxiety disorder, unspecified; R11.2 Nausea with vomiting, unspecified; N80.8 Other endometriosis
CPT/HCPCS: 44970; 36415; 80053; 81025; 83690; 96361; 96365; 96375; 96376; 99285; 74177; 81003; 81015; 83735; 85025; 88304; G0378; J0131; J0665; J0690; J1100; J1171; J1836; J2003; J2060; J2250; J2405; J2704; J3010; J3490

== ENCOUNTER 2025-03-10 20:25 | Emergency (ER) | payer OTHER, SELFPAY ==
--- NOTE | 2025-03-10 20:15 | RT.EKG_ITS ---
APPROVED REPORT Exam: Resting ECG Reason for Exam: chest pain Patient Location: E HR:95 bpm ECG Measurements Heart Rate 95 AXIS MN 151 P 80 QRSd 72 QRS 82 QT 353 T 13 QTc 444 Conclusion Sinus rhythm...normal P axis, V-rate 60- 99 Right atrial enlargement...P>0.25mV 2 lds or<-0.24mV aVR/aVL
[2025-03-10 20:26] VITALS: BP 105/70; PULSE 93; RESP 19; TEMP 36.1; O2SAT 98
[2025-03-10 20:40] VITALS: RESP 19
--- NOTE | 2025-03-10 20:45 | DI.CT_ITS ---
Exam(s) CT CHEST PE CTA EXAM: CT CHEST PE CTA CLINICAL HISTORY: pleuritic L chest pain. TECHNIQUE: Imaging Protocol: Axial CT angiography was performed with multi- slice acquisition and multi-planar and/or 3D reconstructions. Lung Computer Aided Detection (CAD) was utilized. CONTRAST MATERIAL: Intravenous: Omnipaque 350 contrast volume:60 mL COMPARISON: CT CT ABDOMEN PELVIS W from 11/20/2024 FINDINGS: Tracheobronchial tree: Patent where visualized. No bronchiectasis. Pulmonary parenchyma: No consolidation or dominant measurable mass. No architectural distortion. Pulmonary Arteries: No evidence of filling defect to suggest pulmonary emboli. Mediastinum and Gali: No dominant adenopathy or fluid collection. The esophagus is unremarkable. Visualized thyroid gland: Unremarkable. Pleura: No effusion or pneumothorax. Heart: The heart is not dilated. No coronary artery calcifications are seen. No pericardial effusion. Aorta: Thoracic aorta non-dilated. No evidence of dissection. Upper abdomen: Unremarkable. Soft tissues: Unremarkable. Bones: Within normal limits for the patient's age. IMPRESSION: 1. No evidence of pulmonary embolism, thoracic aortic dissection or aneurysm. 2. There is no acute pulmonary process. 3. The preliminary [facility] report was reviewed. RADIATION DOSE DELIVERED: 54.08mGy.cm Total DLP DATA REPOSITORY: All CT scans at this facility are submitted to the National Radiology Data Registry (NRDR) Dose Index Registry (DIR) with the [place] [employer] (ACR). RADIATION OPTIMIZATION: All CT scans at this facility use at least one of these dose optimization techniques: automated exposure control; mA and/or kV adjustment per patient size (includes targeted exams where dose is matched to clinical indication); or iterative reconstruction.
--- NOTE | 2025-03-10 20:54 | W.ED.GENAD ---
Discharge Plan Disposition Patient Disposition: Home Condition: Stable Discharge Details Clinical Impression: Chest pain of uncertain etiology Primary Care Provider: Unknown,Unknown ED Provider: Rocky Garcia Home Meds and New Rx's Prescriptions: Continued tramadol 50 mg tablet 50 mg PO Q6H PRN (Reason: pain) Qty: 9 0RF Rx Instructions: Take 1 tablet by mouth up to every 6 hours if needed for severe pain sertraline [Zoloft] 100 mg tablet 100 mg PO DAILY aripiprazole [Abilify] 2 mg tablet 2 mg PO DAILY diazepam 5 mg tablet 5 mg PO TID PRN promethazine 12.5 mg tablet 12.5 mg PO TID PRN Rx Instructions: 3 doses during day; last dose no later than 4 hr before bedtime acetaminophen [Tylenol Extra Strength] 500 mg tablet 500 mg PO Q4H Qty: 30 0RF multivitamin [Daily Multi-Vitamin] Tablet 1 tab PO DAILY domperidone 10 mg tablet 10 mg PO TID Patient Comments: also known as motilium Discharge Instructions Instructions: Costochondritis, Pleuritic Chest Pain ED Additional Instructions: You were seen in the emergency department for your pleuritic chest pain, your cardiac workup is negative, your EKG is normal, CT of the chest shows no pneumonia, no blood clot in the lungs, no abnormality whatsoever, your other pleura shows no sign of significant infection. You likely have musculoskeletal chest pain from your recent illness that is resolved or pleurisy from inflammation of the lining's of the lungs. Please follow-up with your primary care provider and do not hesitate to return to the emergency department for any emergent concerns Discharge Data Discharge Date/Time-TO BE ENTERED AT DEPARTURE: 03/10/25 22:31 HPI General Date/Time Provider Initiated Documentation: 03/10/25 20:28. HPI Narrative: 34 year-old female presents to ED today by POV/ambulating with a chief complaint of chest pain- L sided and pleuritic worse with deep breaths with onset for the past 3 days worsening. Quality described as shortness of breath, worse chest pain than any prior URI, started a nonproductive cough days ago, no radiation to hemoptysis, diaphoresis, fever, near syncope, nausea/vomiting. Severity is described as severe. Palliating factors include nothing specific attempted. Provoking factors include nothing specific- certain movements. Events leading up to the incident/Associated Symptoms: Patient is not on hormonal control. Patient not anticoagulated. Related Data Home Medications ?Medication ?Instructions ?Recorded ?Confirmed aripiprazole 2 mg tablet (Abilify) 2 mg PO DAILY 11/20/24 03/10/25 diazepam 5 mg tablet 5 mg PO TID PRN 11/20/24 03/10/25 promethazine 12.5 mg tablet 12.5 mg PO TID PRN 11/20/24 03/10/25 sertraline 100 mg tablet (Zoloft) 100 mg PO DAILY 11/20/24 03/10/25 acetaminophen 500 mg tablet 500 mg PO Q4H #30 tabs 11/21/24 03/10/25 (Tylenol Extra Strength) tramadol 50 mg tablet 50 mg PO Q6H PRN pain #9 tabs 11/24/24 03/10/25 domperidone 10 mg PO TID nausea, vomiting 03/10/25 03/10/25 multivitamin (Daily Multi-Vitamin 1 tab PO DAILY 03/10/25 03/10/25 tablet) Previous Rx's ?Medication ?Instructions ?Recorded acetaminophen 500 mg tablet 500 mg PO Q4H #30 tabs 11/21/24 (Tylenol Extra Strength) tramadol 50 mg tablet 50 mg PO Q6H PRN pain #9 tabs 11/24/24 Allergies Allergy/AdvReac Type Severity Reaction Status Date / Time No Known Allergies Allergy Unverified 12/10/24 14:31 General Stated Complaint: Chest Pain CHUY: 2 Review of Systems All systems reviewed & are unremarkable except as noted in HPI and below Exam Narrative Exam Narrative: GENERAL APPEARANCE: Well-nourished, non-toxic, awake and alert, atraumatic, no acute distress. SKIN: Warm, pink, dry, intact, without rashes/lesions/ulcerations. HEAD: Normocephalic, atraumatic, normal hair distribution for gender/age. EYES: Normal conjunctiva, no exudates on lids/lashes. ENT: Nares patent, no circumoral cyanosis, no facial swelling NECK: Supple, trachea midline, painless cervical ROM. LUNGS/CHEST: Lungs CTA bilaterally- no rhonchi/rales/wheezes diffusely, non-labored respirations, normal A/P diameter, symmetrical expansion, no chest wall deformity, L sided chest tenderness in lower ribs - mid-clavicular HEART (CV/PV): Regular rate and rhythm without murmur, no peripheral edema, no JVD. ABDOMEN: Soft, non-distended, no guarding, no tenderness. MSK: Normal ROM, no swelling/deformity to bilateral UEs or LEs, moving all extremities without weakness, no cyanosis, spine midline without tenderness, normal curvature. NEURO: Mental Status AAOx4 - alert to person, place, time, events No facial droop, no forehead involvement. Motor: No focal weakness - strength 5/5 in bilateral UEs and LEs, proximal and distal, symmetric. Sensory: sensation intact to light touch globally. Gait normal: patient ambulated without ataxia into ED room. PSYCH: euthymic, cooperative, pleasant, appropriate speech Course Vital Signs Vital signs: Vital Signs Temperature 36.1 C L 03/10/25 20:26 Pulse 93 H 03/10/25 20:26 Respiratory Rate 19 03/10/25 20:26 Blood Pressure 105/70 03/10/25 20:26 Pulse Oximetry 98 03/10/25 20:26 Temperature 36.1 C L 03/10/25 20:26 Temperature Source Temporal Artery Scan 03/10/25 20:26 Pulse 93 H 03/10/25 20:26 Respiratory Rate 19 03/10/25 20:26 Blood Pressure 105/70 03/10/25 20:26 Blood Pressure Position Sitting 03/10/25 20:26 Pulse Oximetry 98 03/10/25 20:26 Oxygen Delivery Method Room Air 03/10/25 20:26 Oxygen Flow Rate 0 03/10/25 20:26 Pain Level 8 03/10/25 20:26 Comment pain when breathing in 03/10/25 20:26 Medical Decision Making This dictation utilizes [id number] dictation software and may contain unedited grammatical errors. 34 year-old female presents to ED today by POV/ambulating with a chief complaint of chest pain- L sided and pleuritic worse with deep breaths with onset for the past 3 days worsening. Quality described as shortness of breath, worse chest pain than any prior URI, started a nonproductive cough days ago, no radiation to hemoptysis, diaphoresis, fever, near syncope, nausea/vomiting. Severity is described as severe. Palliating factors include nothing specific attempted. Provoking factors include nothing specific- certain movements. Events leading up to the incident/Associated Symptoms: Patient is not on hormonal control. Patients' medical history: Anxiety, gastroparesis. Family and social history: Noncontributory. Pertinent exam findings / vital signs include left-sided pleuritic chest pain, not overtly tender but slightly worse with palpation, lungs CTA with no focally diminished or absent lung sounds, no rhonchi/rales/wheezes diffusely, no hypoxia, benign abdomen, neuro intact. Differential / pathologies of concern include pneumonia, URI, costochondritis, PE, ACS, pancreatitis. Diagnostic studies of: - CBC, CMP, troponin, lipase, EKG, CTA chest PE study. - CBC benign - CMP benign - Trop negative with reliable onset - Lipase negative - EKG shows sinus rhythm at 95 bpm with P waves followed by a narrow complex QRS, normal axis, poor R wave progression, some submillimeter ST depression in lateral leads, no T wave inversions, normal intervals, no priors for comparison - CTA Chest shows no PE, no PNA, no other abnormality Interventions of: -None. ED Course/Assessment/Plan: 34-year-old female presents with worsening chest pain over 3 days, left-sided and pleuritic with shortness of breath, recent developing cough, no hemoptysis, it is low risk on [place] but CTA was performed, rules out PE and pneumonia, EKG shows no concerns for ischemia, troponin negative, CBC is benign CMP is benign, lipase negative, likely costochondritis in the setting of cough possible viral syndrome but no need for antibiotics at this time, recommend strict return criteria for any worsening shortness of breath or chest pain especially with diaphoresis and dizziness and near syncope. Findings not consistent with ACS, PE, pneumonia, sepsis, pancreatitis. Disposition of Chest Pain of Uncertain Etiology. Patient verbalized understanding of the plan and return to ED criteria and engaged in shared decision making. Medical Records Medical records reviewed: Yes I reviewed the patient's medical records. Imaging Data Radiologic Study: Attestation: I personally reviewed and interpreted this imaging study as follows: Imaging: CT Scan Radiologist's impression: Exam: CTA Chest With Contrast Exam date and time: 03/10/2025 9:07 PM Age: 34 years old Clinical indication: Other: Pleuritic L chest pain TECHNIQUE: Imaging protocol: Computed tomographic angiography of the chest with contrast. Exam focused on the arteries. 3D rendering (Not supervised by radiologist): MIP and/or 3D reconstructed images were created by the technologist. Contrast material: OMNI 350; Contrast volume: 60 ml; Contrast route: INTRAVENOUS (IV); COMPARISON: CT ABDOMEN PELVIS W 11/20/2024 12:02 PM FINDINGS: Pulmonary arteries: No pulmonary embolism identified. Aorta: No thoracic aortic aneurysm or dissection. Thyroid: Thyroid gland largely obscured by artifact but grossly normal in size through its visualized portion. Lungs: Minimal dependent atelectasis. No pulmonary consolidation. Pleural spaces: No pleural effusion or pneumothorax. Heart: Normal-sized heart. Lymph nodes: No pathologically enlarged mediastinal or hilar lymph nodes. Bones/joints: Lower ribs partially excluded from view and incompletely evaluated. Otherwise, no acute fracture seen among the bones of the chest. Soft tissues: No gross soft tissue mass or fluid collection seen in the chest wall. IMPRESSION: No active disease is seen in the chest. Dictated and Authenticated by: Clint Monet MD. Lab Data Lab results reviewed: Yes I reviewed the patient's lab results. Labs: Laboratory Tests Range/Units 03/10/25 20:35 WBC (4.4-10.8) 10^3/uL 10.26 RBC (3.93-5.22) 10^6/uL 4.28 Hgb (11.2-15.7) g/dL 12.6 Hct (36.0-46.0) % 38.2 MCV (80-95) fL 89 MCH (27.0-33.0) pg 29.4 MCHC (32.0-36.0) % 33.0 RDW (11.7-14.6) % 12.8 Plt Count (130-400) 10^3/uL 254 MPV (8.0-11.0) fL 10.0 Immature Gran % % 0.2 Neutrophils % % 58.8 Lymphocytes % % 31.9 Monocytes % % 7.7 Eosinophils % % 0.9 Basophils % % 0.5 Nucleated RBC % (0.0-0.3) % 0.0 Absolute Neutrophils (1.2-6.7) 10^3/uL 6.04 Absolute Lymphocytes (1.2-3.4) 10^3/uL 3.27 Absolute Monocytes (0.1-0.8) 10^3/uL 0.79 Absolute Eosinophils (0.0-0.7) 10^3/uL 0.09 Absolute Basophils (0.0-0.2) 10^3/uL 0.05 Sodium (136-145) mmol/L 139 Potassium (3.5-5.1) mmol/L 3.5 Chloride (98-107) mmol/L 104 Carbon Dioxide (21.0-32.0) mmol/L 31.3 Anion Gap (3-11) mmol/L 3.7 BUN (7-18) mg/dL 11 Creatinine (0.55-1.02) mg/dL 0.6 Est GFR (CKD-EPI 2020) (mL/min/1.73m2) 120.72 Glucose (74-106) mg/dL 79 Calcium (8.5-10.1) mg/dL 8.9 Total Bilirubin (0.2-1.0) mg/dL 0.2 AST (15-37) U/L 14 L ALT (14-59) U/L 16 Alkaline Phosphatase (46-116) U/L 75 Troponin I (<or=51) ng/L < 4 Total Protein (6.4-8.2) g/dL 6.9 Albumin (3.4-5.0) g/dL 3.9 Lipase (<78) U/L 28 PFSH All Active Problems (Updated 03/10/25 @ 21:58 by ROWDY Carter) Chest pain of uncertain etiology (Acute) Depression (Chronic) Anxiety (Chronic) Gastroparesis (Acute) Surgical History (Updated 11/24/24 @ 07:43 by Kenzie Coppola CMA) S/P laparoscopic appendectomy (~10/2024) Social History Smoking/Tobacco Use Status: Current every day Tobacco Type: cigarettes Years smoked: 15 Tobacco: How many years used: 15 Smoking risk assessment performed?: Yes Alcohol Intake: never Drug use: Daily Substance use type: marijuana Details: most days to help with appetite Housing: house Do you feel safe at home: Yes Do you feel safe in your relationship?: Yes
[2025-03-10 21:00] LABS: Abs Immature Grans 0.02 10^3/uL (0.0-0.06); HCT 38.2 % (36.0-46.0); HGB 12.6 g/dL (11.2-15.7); Immature Grans % 0.2 %; MCH 29.4 pg (27.0-33.0); MCHC 33.0 % (32.0-36.0); MCV 89 fL (80-95); MPV 10.0 fL (8.0-11.0); Platelet Count 254 10^3/uL (130-400); RBC 4.28 10^6/uL (3.93-5.22); RDW 12.8 % (11.7-14.6); RDW-SD 41.9 fL; WBC 10.26 10^3/uL (4.4-10.8)
[2025-03-10] MEDS: Omnipaque 350 MG/ML 100 ML BTL IJ (21:01)
[2025-03-10] MEDS: Normal Saline Flush 10 ML SYR IVP (21:02)
[2025-03-10] MEDS: Normal Saline - Diluent 50 ML VIAL IJ (21:02)
[2025-03-10 21:19] LABS: ALT 16 U/L (14-59); AST 14 U/L (15-37); Albumin 3.9 g/dL (3.4-5.0); Alkaline Phosphatase 75 U/L (46-116); Anion Gap 3.7 mmol/L (3-11); BUN 11 mg/dL (7-18); Bilirubin, Total 0.2 mg/dL (0.2-1.0); CO2 31.3 mmol/L (21.0-32.0); Calcium 8.9 mg/dL (8.5-10.1); Chloride 104 mmol/L (98-107); Estimated GFR 120.72 (mL/min/1.73m2); Glucose 79 mg/dL (74-106); Lipase 28 U/L (<78); Potassium 3.5 mmol/L (3.5-5.1); Sodium 139 mmol/L (136-145); Total Protein 6.9 g/dL (6.4-8.2)
[2025-03-10 21:21] LABS: Troponin I < 4 ng/L (<or=51)
--- NOTE | 2025-03-10 21:51 | DI.VRAD_ITS ---
PROCEDURE INFORMATION: Exam: CTA Chest With Contrast Exam date and time: 03/10/2025 9:07 PM Age: 34 years old Clinical indication: Other: Pleuritic L chest pain TECHNIQUE: Imaging protocol: Computed tomographic angiography of the chest with contrast. Exam focused on the arteries. 3D rendering (Not supervised by radiologist): MIP and/or 3D reconstructed images were created by the technologist. Contrast material: OMNI 350; Contrast volume: 60 ml; Contrast route: INTRAVENOUS (IV); COMPARISON: CT ABDOMEN PELVIS W 11/20/2024 12:02 PM FINDINGS: Pulmonary arteries: No pulmonary embolism identified. Aorta: No thoracic aortic aneurysm or dissection. Thyroid: Thyroid gland largely obscured by artifact but grossly normal in size through its visualized portion. Lungs: Minimal dependent atelectasis. No pulmonary consolidation. Pleural spaces: No pleural effusion or pneumothorax. Heart: Normal-sized heart. Lymph nodes: No pathologically enlarged mediastinal or hilar lymph nodes. Bones/joints: Lower ribs partially excluded from view and incompletely evaluated. Otherwise, no acute fracture seen among the bones of the chest. Soft tissues: No gross soft tissue mass or fluid collection seen in the chest wall. IMPRESSION: No active disease is seen in the chest. Dictated and Authenticated by: Clint Monet MD. Orderin Radha Hidalgo MD
[2025-03-10 22:24] VITALS: RESP 16
[2025-03-10 22:25] VITALS: RESP 16
== END 2025-03-10 22:31 | disposition home or self-care (01) ==
PROVIDERS: Emergency Provider Physician Assistant
DX: R07.9 Chest pain, unspecified (principal); Z72.0 Tobacco use
CPT/HCPCS: 99283; 99285; 81025; 71275; 80053; 83690; 93005; 84484; 85025; 93010; J3490